=== PATIENT | female | born 1960 | race Caucasian/White ===

== ENCOUNTER → 2017-09-23 | Day surgery (SDC) | payer BC ==
[~2017-09-23] MED LIST: Lidocaine 1% 20 ML MDV ONE
--- NOTE | 2017-09-27 10:35 | OR ---
DATE OF OPERATION: 09/24/2017 PREOPERATIVE DIAGNOSIS: VENOUS INSUFFICIENCY WITH PAINFUL VARICOSITIES. POSTOPERATIVE DIAGNOSIS: VENOUS INSUFFICIENCY WITH PAINFUL VARICOSITIES. SURGEON: Candelario Yeager MD PROCEDURE: BILATERAL EVH, GSVS. SURGEON: Candelario Yeager MD. ANESTHESIA: Local tumescent. COMPLICATIONS: None. SPECIMEN: None. FINDINGS: Successful bilateral EVH, GSVs. INDICATIONS: The patient has documented saphenofemoral insufficiency on ultrasound. She suffers from symptomatic venous insufficiency and elected to proceed with endovenous ablation. DESCRIPTION OF PROCEDURE: The patient was brought to the operating room site and insufficient saphenous veins on each lower extremity mapped via ultrasound and diagrammed on the overlying skin along with the access site at just above the knee on each leg. Both limbs were prepped and draped in sterile fashion. The patient was placed in reverse Trendelenburg position and local anesthesia was instilled in the right leg at the access site. The vein was accessed using ultrasound guidance and Seldinger technique with a guidewire introduced through the needle. Needle was removed and a small incision was made with a #15 blade scalpel. A six-[place] sheath was exchanged over the guidewire and held in place by skin tension. The guidewire was removed. The sheath was flushed. Radiofrequency probe was placed into the vein through the sheath and positioned approximately 2.1 cm distal to the saphenofemoral junction under ultrasound guidance. After radiofrequency probe position was verified via ultrasound, tumescent anesthesia was infiltrated under ultrasound guidance into the perivenous compartment achieving halo effect around the vein from the saphenofemoral junction to the access site. The patient was then placed in Trendelenburg position to exsanguinate the superficial system. Radiofrequency probe position was confirmed via the ultrasound and with external compression along the length of the heating element, radiofrequency energy was applied. The vein was segmentally ablated heating a 7 cm segment and indexing the catheter forward 6.5 cm until treatment length complete. Device temperature was maintained at 120 degrees Celsius with an initial power level of 40 W, dropping to below 20 for each treatment. Total treatment time on the right leg was 3 minutes with 9 radiofrequency cycles and a total of 400 mL of tumescent fluid used. Repeat ultrasound confirmed successful treatment. The catheter and sheath were withdrawn in usual fashion. Hemostasis was achieved with direct pressure and a bandage was placed over the access site and ultimately a compression wrap from the level of the foot to the groin. The left leg was then isolated with the patient back in reverse Trendelenburg position. Local anesthesia of 1% lidocaine was instilled at the access site and the vein was accessed using ultrasound guidance in Seldinger technique with a guidewire introduced through the needle. The needle was removed. A small incision was made with a #15 blade scalpel and a 6-[place]vian sheath was exchanged over the guidewire with the guidewire then removed and the sheath held in place by skin tension. Sheath was flushed. Radiofrequency probe was placed into the vein through the sheath and positioned approximately 1.9 cm distal to the saphenofemoral junction under ultrasound guidance. Once probe position verified via ultrasound tumescent anesthesia was infiltrated into the perivenous compartment achieving a halo effect around the vein. The patient was placed back in Trendelenburg position to exsanguinate the superficial system. Radiofrequency probe position was again confirmed via ultrasound and under direct external compression along the length of the heating element, radiofrequency energy was applied. The vein was ablated, heating a 7 cm segment, indexing the catheter forward 6.5 cm until treatment length complete. Device temperature was kept at 120 degrees Celsius with an initial power level of 40 W, dropping to below 20 for each treatment. Total treatment time the left leg was 2 minutes and 40 seconds with 8 radiofrequency cycles and a total 450 mL of tumescent fluid used. Repeat ultrasound confirmed successful treatment. Catheter and sheath were withdrawn without difficulty. Hemostasis was achieved with direct pressure and the skin incision was closed with a bandage and compression wrap was placed from the level of the foot to the groin. The patient was stable in the recovery room. ZAHRA/SMOOTH /[id number]
== END ==
LOC: CC.SDS 06:27
PROVIDERS: ATTEND Family Medicine
DX: I87.2 Venous insufficiency (chronic) (peripheral) (principal); I83.813 Varicose veins of bilateral lower extremities with pain
CPT/HCPCS: 36475; A4216